=== PATIENT | male | born 1985 | race Caucasian/White ===

== ENCOUNTER 2017-10-09 20:47 | Emergency (ER) | payer SELFPAY ==
[2017-10-09] MEDS: FLUORESCEIN STRIP LEFT EYE (21:56)
== END 2017-10-09 22:55 | disposition home or self-care (01) ==
LOC: FTE 20:47
DX: T15.02XA Foreign body in cornea, left eye, initial encounter (principal); X58.XXXA Exposure to other specified factors, initial encounter; Y92.89 Other specified places as the place of occurrence of the external cause
CPT/HCPCS: 65220; 99283-25